=== PATIENT | male | born 1960 | race Caucasian/White ===

== ENCOUNTER 2016-12-28 14:49 | Emergency (ER) | payer OTHER ==
[~2016-12-28] VITALS: Ht 177.8 cm; Wt 62.1 kg
[~2016-12-28 14:49] MED LIST: CYCL10TA2 PO; HYDR-2758 PO; NITR0.4T SL; OLAN20TA7 PO; RANI150T6 PO; RIVA15TA PO; RIVA20TA2 PO; TAMS0.4C97 PO
[2016-12-28] MEDS ORDERED: CLIN300C8 PO (15:19)
[2016-12-28] MEDS ORDERED: HYDR-2758 PO (15:19)
--- NOTE | 2016-12-28 15:20 | PHYS DOC ---
Past Medical History Past Medical History: Anxiety, GERD, Other Additional Past Medical Histor: BPH Past Surgical History: Appendectomy, Tonsillectomy Alcohol Use: Heavy Drug Use: Amphetamine Adult General Chief Complaint Chief Complaint: MULTIPLE COMPLAINTS HPI HPI 56-year-old gentleman presenting to the emergency department with pain in his tooth on the right upper part of his jaw. His pain is been present for approximately 3 months. It is worsened over the past 3 days. He denies fevers chills. He denies stridor shortness of breath tongue swelling or drooling. The pain is moderate throbbing intermittent and without alleviating factors. Review of systems is negative for chest pain shortness of breath nausea vomiting fevers chills. All other review of systems is negative unless otherwise noted in history of present illness. ED course: 56-year-old gentleman presenting to the emergency department today with tooth pain. Vital signs unremarkable. Pertinent examination shows no evidence of tongue swelling. No evidence of peritonsillar abscess. Patient is comfortably swallowing his secretions and not in any distress in the examination room. The remainder the exam is unremarkable. I provided the patient a small dose of oral pain medication clindamycin and referred the patient to a dentist to be seen today. The patient was then discharged home in stable condition to follow up with their primary care physician over the next 2- 3 days. They were to return if their symptoms worsened or if they were concerned for any reason. [id number] discharge instructions and return precautions were given. Patient's questions were answered to their satisfaction. Patient is comfortable plan. Review of Systems Review of Systems SEE ABOVE. Allergies Allergies Allergies Coded Allergies Type Severity Reaction Last Updated Verified Penicillins Allergy Intermediate 03/20/16 Yes Physical Exam Physical Exam see above Constitutional: Well developed, well nourished, no acute distress, non-toxic appearance. [] HENT: Normocephalic, atraumatic, bilateral external ears normal, oropharynx moist, no oral exudates, nose normal. [] Eyes: PERRLA, EOMI, conjunctiva normal, no discharge. [] Neck: Normal range of motion, no tenderness, supple, no stridor. [] Cardiovascular:Heart rate regular rhythm, no murmur [] Lungs & Thorax: Bilateral breath sounds clear to auscultation [] Abdomen: Bowel sounds normal, soft, no tenderness, no masses, no pulsatile masses. [] Skin: Warm, dry, no erythema, no rash. [] Back: No tenderness, no CVA tenderness. [] Extremities: No tenderness, no cyanosis, no clubbing, ROM intact, no edema. [] Neurologic: Alert and oriented X 3, normal motor function, normal sensory function, no focal deficits noted. [] Psychologic: Affect normal, judgement normal, mood normal. [] Current Patient Data Vital Signs Vital Signs Date Time Temp Pulse Resp B/P (MAP) Pulse Ox O2 Delivery O2 Flow Rate FiO2 12/28/16 14:59 98.9 90 18 143/87 (105) 95 Room Air 98.9 EKG EKG [] Radiology/Procedures Radiology/Procedures [] Course & Med Decision Making Course & Med Decision Making Pertinent Labs and Imaging studies reviewed. (See chart for details) [] Dragon Disclaimer Dragon Disclaimer This electronic medical record was generated, in whole or in part, using a voice recognition dictation system. Departure Departure Impression: Primary Impression: Pain, dental Disposition: HOME, SELF-CARE Condition: STABLE Referrals: NO PCP (PCP) BELLO CAN MD Patient Instructions: Dental Caries, Dental Pain Additional Instructions: Thank you for allowing us to participate in your care today. Followup with your primary care physician in 3 days if your symptoms do not improve. Call your Primary Doctor tomorrow and inform them of your visit today. If you do not have a primary care provider you can ask for a list of our primary care providers. Return to the emergency department you have any new or concerning findings. This should be evaluated by the primary care physician and any necessary consulting services for continued management within a few days after discharge. Return to emergency room if you have any new or concerning symptoms including but not limited to fever, chills, nausea, vomiting, intractable pain, any new rashes, chest pain, shortness of air, uncontrolled bleeding, difficulty breathing, and/or vision loss. Scripts Hydrocodone Bit/Acetaminophen (HYDROCODONE-APAP 5-325 ) 1 Each Tablet 1 TAB PO PRN Q6HRS Y for PAIN, #6 TAB 0 Refills Be careful as this medication may cause you to be drowsy or tired. Do not drive on this medication. Prov: MIYA ADRIAN MD 12/28/16 Clindamycin Hcl (CLINDAMYCIN HCL) 300 Mg Capsule 1 CAP PO TID, #15 CAP Prov: MIYA ADRIAN MD 12/28/16 MIYA ADRIAN MD Dec 28, 2016 15:20
[2016-12-28 16:02] VITALS: BP 146/98
== END 2016-12-28 16:03 | disposition home or self-care (01) ==
LOC: ER 14:49
DX: K08.89 Other specified disorders of teeth and supporting structures (principal); K21.9 Gastro-esophageal reflux disease without esophagitis; F15.10 Other stimulant abuse, uncomplicated
CPT/HCPCS: 99283